=== PATIENT | male | born 1965 | race Caucasian/White ===

== ENCOUNTER 2021-01-27 09:25 | Emergency (ER) | payer OTHER ==
[2021-01-27] MEDS ORDERED: IBUPROFEN 400 MG TABLET (FP) PO ONE ×2 (09:26→09:45)
[2021-01-27 09:33] VITALS: BP 134/95; PULSE 63; TEMP 97.6; BMI 26.8
== END 2021-01-27 10:05 | disposition home or self-care (01) ==
LOC: FER 09:25
DX: M70.21 Olecranon bursitis, right elbow (principal)
CPT/HCPCS: 99283-25

== ENCOUNTER 2021-04-01 10:29 | Emergency (ER) | payer OTHER ==
[2021-04-01 10:34] VITALS: BP 124/95; PULSE 76; TEMP 98.3; BMI 27.1
[2021-04-01] MEDS ORDERED: IBUPROFEN 400 MG TABLET (FP) PO ONE ×2 (10:39→10:42)
== END 2021-04-01 12:45 | disposition home or self-care (01) ==
LOC: FER 10:29
DX: S22.43XA Multiple fractures of ribs, bilateral, initial encounter for closed fracture (principal); W22.09XA Striking against other stationary object, initial encounter
CPT/HCPCS: 71111-TC-FY; 99283-25

== ENCOUNTER 2022-10-29 04:20 | Day surgery (SDC) | payer OTHER ==
[2022-10-27 16:04] VITALS: BMI 26.9
[2022-10-29 09:18] VITALS: BP 123/87; PULSE 96; RESP 18; TEMP 98
[2022-10-29] MEDS ORDERED: SIMETHICONE 40 MG/0.6 ML BOTTLE ONE (10:56)
== END 2022-10-29 09:45 | disposition home or self-care (01) ==
LOC: JASU-ENDO 04:20
PROVIDERS: ATTEND Internal Medicine Gastroenterology
PROC: 0DBM8ZX Excision of Descending Colon, Via Natural or Artificial Opening Endoscopic, Diagnostic (ICD-10-PCS; principal; 2022-10-29 08:00)
DX: Z12.11 Encounter for screening for malignant neoplasm of colon (principal); D12.4 Benign neoplasm of descending colon; K57.30 Diverticulosis of large intestine without perforation or abscess without bleeding; K64.8 Other hemorrhoids
CPT/HCPCS: 88305-TC